=== PATIENT | female | born 1955 | race Caucasian/White ===

== ENCOUNTER 2018-12-25 12:03 | Emergency (ER) | payer SELFPAY ==
[~2018-12-25] VITALS: Ht 167.6 cm; Wt 83.2 kg
[2018-12-25] MEDS ORDERED: MORPHINE SULFATE 4 MG/ML, 1ML ONE (12:27)
[2018-12-25] MEDS ORDERED: ONDANSETRON 2MG/ML, 2ML ONE ×2 (12:27→14:46)
[2018-12-25] MEDS ORDERED: HYDROmorphone 2 MG/ML, 1ML ONE ×3 (12:29→14:47)
[2018-12-25] MEDS ORDERED: ONDANSETRON 2MG/ML, 2ML IVPush ONE ×2 (12:30→14:30)
[2018-12-25] MEDS ORDERED: SODIUM CHLORIDE FLUSH 10ML SYR IVF ONE (12:30)
[2018-12-25] MEDS ORDERED: SODIUM CHLORIDE 0.9% 1,000ML IVBOLUS ONE (12:30)
[2018-12-25 12:50] LABS: BASOPHILS # (AUTO) 0.03 x10^3/uL (0-0.1); BASOPHILS % (AUTO) 0 % (0-1); EOSINOPHILS # (AUTO) 0.14 x10^3/uL (0-0.4); EOSINOPHILS % (AUTO) 2 % (1-7); LYMPHOCYTES # (AUTO) 1.47 x10^3/uL (1-3.4); LYMPHOCYTES % (AUTO) 17 % (22-44); MD NO; MEAN CORPUSCULAR HEMOGLOBIN 28.8 pg (27.0-34.8); MEAN CORPUSCULAR HGB CONC 32.9 g/dL (32.4-35.8); MEAN CORPUSCULAR VOLUME 87.6 fL (80-100); MEAN PLATELET VOLUME 8.3 fL (7.4-10.4); MONOCYTES # (AUTO) 0.32 x10^3/uL (0.2-0.8); MONOCYTES % (AUTO) 4 % (2-9); NEUTROPHILS # (AUTO) 6.56 x10^3/uL (1.8-6.8); NEUTROPHILS % (AUTO) 77 % (42-75); PLATELET COUNT 303 x10^3/uL (130-400); RED BLOOD COUNT 5.53 x10^6/uL (3.82-5.3); RED CELL DISTRIBUTION WIDTH 13.8 % (9.6-15.2)
[2018-12-25] MEDS: HYDROmorphone 2 MG/ML, 1ML IVPush PRN ×4 (12:59→16:11)
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
--- NOTE | 2018-12-25 13:16 | NUR ---
patient remians in 06/06 ioys-rx-dktit w/ additional 1mg of dilaudid 55, 122/48 lab to bedside to re-draw labs
[2018-12-25 13:42] LABS: ALANINE AMINOTRANSFERASE 27 U/L (12-78); ALBUMIN 3.7 g/dL (3.4-5.0); ANION GAP 10 mmol/L (5-15); CHLORIDE 109 mmol/L (98-107); CREATININE 0.87 mg/dL (0.55-1.02)
[2018-12-25 13:44] LABS: ALKALINE PHOSPHATASE 72 U/L (45-117); BILIRUBIN,TOTAL 0.4 mg/dL (0.2-1.0); TOTAL PROTEIN 7.1 g/dL (6.4-8.2)
--- NOTE | 2018-12-25 13:58 | NUR ---
TO RADIOLOGY PRIOR TO TRANSPORT PATIENT REMAINS UNCOMFORTABLE (PAIN RATED AT 4/10) AND NAUSEATED (3/10). PROVIDER MADE AWARE VITALS REMAIN UNCHANGED 59, 117/74
[2018-12-25] MEDS ORDERED: OMNIPAQUE 350 MG/ML, 100ML BOTTLE ONE (14:14)
[2018-12-25] MEDS ORDERED: FAMOTIDINE 20 MG/2 ML IVP ONE (14:30)
[2018-12-25] MEDS ORDERED: MAALOX/HYOSCYAMINE/LIDOCAINE 45 ML BTL PO ONE (14:30)
[2018-12-25] MEDS ORDERED: FAMOTIDINE 20 MG/2 ML ONE (14:47)
[2018-12-25] MEDS ORDERED: MAALOX/HYOSCYAMINE/LIDOCAINE 45 ML BTL ONE (14:47)
--- NOTE | 2018-12-25 15:00 | NUR ---
REPORT FROM MERRICK SMITH. PT SITTING UP IN [facility]. DOSING INTERMITTENTLY. PT REPORTS IMPROVEMENT IN PAIN W/ MEDICATIONS. SO AT BEDSIDE. SPO2 >90% ON 2L BY NC. RR WNL.
--- NOTE | 2018-12-25 15:04 | NUR ---
PATIENT REMAINS WITH PAIN AT 5/10, NAUSEA AT 6/10. PROVIDER AWARE. TO RE-DOSE WELL ADD ADDITIONAL MEDICATIONS PROVIDER TO BEDSIDE TO EXPLAIN TESTING RESULTS PATIENT STILL UNABLE TO VOID. PROVIDER DEFERRING NEED FOR STRAIGHT CATH PATIENT UP TO COMMODE BUT UNABLE TO VOID
[2018-12-25 15:10] VITALS: BP 113/90
--- NOTE | 2018-12-25 15:15 | NUR ---
REPORT TO MABEL SIN
--- NOTE | 2018-12-25 16:06 | NUR ---
PT MAINTAINING AN SPO2 >90% ON RA. RR WNL. IV DC'D. PT OFF MONITORING AND ALLOWED TO DRESS SELF.
--- NOTE | 2018-12-25 16:10 | NUR ---
PT WITH ONE EPISODE OF VOMITING WHILE PREPARING FOR DC. PT REQUESTING ANTIEMETIC. ERP AWARE. AWAITING ORDERS.
[2018-12-25] MEDS ORDERED: PROMETHAZINE 25 MG/ML, 1ML ONE (16:15)
--- NOTE | 2018-12-25 16:20 | NUR ---
PT MEDICATED PER EMAR FOR NAUSEA
[2018-12-25] MEDS ORDERED: PROMETHAZINE 25 MG/ML, 1ML IM ONE (16:30)
--- NOTE | 2018-12-25 16:41 | NUR ---
NO VOMITING SINCE ADMIN OF ADDITIONAL NAUSEA MEDICATIONS. PT REPORTS 'STILL NAUSEOUS' AND AGREES TO RETURN TO ED WITH WORSENING S/S. DC EDUCATION PROVIDED, PT DEMONSTRATES UNDERSTANDING. PT TRANSFERRED SELF TO WHEELCHAIR. WHEELED TO DC WT RN AND SO. SO TO TRANSPORT PT HOME.
== END 2018-12-25 16:43 | disposition home or self-care (01) ==
LOC: ED 14:33
DX: A08.4 Viral intestinal infection, unspecified (principal); R10.84 Generalized abdominal pain
CPT/HCPCS: 36415; 74177; 80053; 83690; 85025; 96361; 96372; 96374; 96375; 96376; 99284; J1170; J2405; J2550; J3490; J7030; Q9967